=== PATIENT | female | born 1980 | race Caucasian/White ===

== ENCOUNTER 2021-12-17 18:46 | Emergency (ER) | payer OTHER ==
[~2021-12-17] VITALS: Ht 175.3 cm; Wt 90.7 kg
[~2021-12-17 18:46] MED LIST: BACTRIM DS TAB1 EACH PO; LEVOTHROID200 MCG; ULTRAM 50MG TAB50 MG PO
[2021-12-17] MEDS ORDERED: KEFLEX250 MG PO (19:01)
[2021-12-17] MEDS ORDERED: ANUSOL-HC25 MG RECTAL (19:01)
[2021-12-17 19:37] LABS: ABSOLUTE BASOPHILS 0.1 thou/uL (0.0-0.2); ABSOLUTE EOSINOPHILS 0.3 thou/uL (0.0-0.7); ABSOLUTE LYMPHOCYTES 1.5 thou/uL (0.8-5.3); ABSOLUTE MONOCYTES 1.4 thou/uL (0.0-1.2); ABSOLUTE NEUTROPHILS 6.9 thou/uL (1.6-8.1); BASOPHILS 0.6 %; EOSINOPHILS 2.6 %; HEMATOCRIT 30.7 % (37.0-47.0); LYMPHOCYTES 14.7 %; MCH 25.1 pg (26.0-34.0); MCHC 32.7 g/dL (28.0-37.0); MCV 76.8 fL (80.0-100.0); MONOCYTES 13.9 %; MPV 7.6 fl. (7.2-11.1); NUCLEATED RBCS 0 /100WBC; PLATELET COUNT* 208 thou/uL (150-400); POLYS 68.2 %; RBC 3.99 mil/uL (4.20-5.00); RDW-CV 17.2 % (10.5-14.5); WBC 10.1 thou/uL (4.0-11.0)
[2021-12-17 19:40] LABS: CALCIUM 8.3 mg/dL (8.5-10.1); CREATININE 0.7 mg/dL (0.6-1.3); POTASSIUM 3.5 mmol/L (3.5-5.1)
[2021-12-17] MEDS ORDERED: CIPROFLOXACIN500 M1 PO ×2 (20:23→20:26)
[2021-12-17] MEDS ORDERED: ENDOCET 7.5-321 EACH PO ×2 (20:23→20:26)
[2021-12-17] MEDS ORDERED: METRONIDAZOLE500 M4 PO ×2 (20:23→20:26)
[2021-12-17 21:08] VITALS: BP 112/58
== END 2021-12-17 21:08 | disposition home or self-care (01) ==
LOC: M.ERS 18:46
PROVIDERS: Emergency Medicine
DX: K61.1 Rectal abscess (principal); F41.9 Anxiety disorder, unspecified; F17.210 Nicotine dependence, cigarettes, uncomplicated; Z79.899 Other long term (current) drug therapy; Z91.02 Food additives allergy status